=== PATIENT | female | born 1960 | race Caucasian/White ===

== ENCOUNTER 2019-03-28 12:56 | Emergency (ER) | payer BC ==
[2019-03-28] MEDS ORDERED: Amoxicillin/Potassium Clav 875 MG TAB ONE (13:39)
[2019-03-28] MEDS ORDERED: Adacel (T-DAP) 0.5 ML SYRINGE ONE (13:39)
[2019-03-28] MEDS ORDERED: Lidocaine 1% w/Epinephrine 1:100K 20 ML VIAL ONE (13:55)
== END 2019-03-28 14:30 | disposition home or self-care (01) ==
LOC: MADERS 12:56
DX: S51.812A Laceration without foreign body of left forearm, initial encounter (principal); E03.9 Hypothyroidism, unspecified; I10 Essential (primary) hypertension; Z23 Encounter for immunization; W26.0XXA Contact with knife, initial encounter
CPT/HCPCS: 12001; 90471; 90715